=== PATIENT | female | born 1950 | race Caucasian/White ===

== ENCOUNTER 2023-06-23 11:27 | Inpatient (IN) | payer BC, OTHER ==
[~2023-06-23] VITALS: Ht 170.2 cm; Wt 78.5 kg
[~2023-06-23 11:27] MED LIST: CLON1TAB12 PO; HYDR-3919 PO; PRO20 PO; PROP60CA40 PO
[2023-06-23 11:34] VITALS: BP_SYST 118; PULSE 68; RESP 15; TEMP 97.3; O2SAT 98
[2023-06-23 12:41] LABS: BILIRUBIN,URINE 1+ (NEGATIVE); COLOR,URINE YELLOW (YELLOW); GLUCOSE,URINE NEGATIVE (NEGATIVE); KETONES,URINE TRACE (NEGATIVE); LEUKOCYTE ESTERASE ,URINE 2+ (NEGATIVE); NITRITE, URINE NEGATIVE (NEGATIVE); PH,URINE 5.5 (5.0-8.0); PROTEIN URINE TRACE (NEGATIVE)
[2023-06-23 12:45] LABS: BASOPHILS % (AUTO) 0.2 % (0.0-2.0); EOSINOPHILS # (AUTO) 0.1 K/uL (0.0-0.4); EOSINOPHILS % (AUTO) 1.7 % (0.0-4.0); HEMOGLOBIN 12.4 g/dL (12.0-16.0); LYMPHOCYTES # (AUTO) 0.5 K/uL (1.0-5.5); LYMPHOCYTES % (AUTO) 7.1 % (20.5-51.5); MEAN CORPUSCULAR HEMOGLOBIN 30 pg (27-31); MEAN CORPUSCULAR HGB CONC 34 % (32-36); MEAN CORPUSCULAR VOLUME 89 fL (79.0-98.0); MONOCYTES # (AUTO) 0.6 K/uL (0.0-1.0); MONOCYTES % (AUTO) 8.4 % (1.7-9.3); NEUTROPHILS # (AUTO) 5.7 K/uL (1.8-7.7); NEUTROPHILS % (AUTO) 82.6 % (40.0-70.0); PLATELET COUNT (AUTO) 167 K/uL (130-430); RED BLOOD CELL COUNT(AUTO) 4.14 MIL/uL (4.2-6.2); RED CELL DISTRIBUTION WIDTH 13.9 % (9.0-15.0); WHITE BLOOD COUNT (AUTO) 6.9 K/uL (4.8-10.8)
[2023-06-23 12:49] LABS: BLOOD, URINE TRACE (NEGATIVE); CLARITY/URINE HAZY (CLEAR)
[2023-06-23 13:03] LABS: CALCIUM 9.4 mg/dL (8.4-11.0); CREATININE 1.09 mg/dL (0.55-1.30); POTASSIUM 5.2 mmol/L (3.5-5.1)
[2023-06-23 13:07] LABS: ALBUMIN 3.5 g/dL (3.4-4.8); BILIRUBIN,DIRECT 0.2 mg/dL (0.0-0.3); TOTAL BILIRUBIN 0.6 mg/dL (0.0-1.0); TOTAL PROTEIN, SERUM 6.9 g/dL (6.4-8.3)
[2023-06-23 13:09] LABS: BACTERIA,URINE RARE /HPF (None Seen); HYALINE CASTS, URINE 0-2 /LPF (None Seen)
[2023-06-23] MEDS ORDERED: ACETAMINOPHEN 325 MG TABLET PO PRN ×2 (14:15→14:30)
[2023-06-23] MEDS ORDERED: KETOROLAC TROMETHAMINE 15 MG VIAL ONE (15:45)
[2023-06-23] MEDS: MEROPENEM 1 GM in NS 100 ML IV ONE (16:01)
[2023-06-23] MEDS: KETOROLAC TROMETHAMINE 15 MG VIAL IM ONE (16:01)
[2023-06-23] MEDS ORDERED: LOVA40TA75 PO (16:22)
[2023-06-23] MEDS ORDERED: OMEP40CA20 PO (16:22)
[2023-06-24 04:41] LABS: BASOPHILS % (AUTO) 0.3 % (0.0-2.0); EOSINOPHILS # (AUTO) 0.1 K/uL (0.0-0.4); EOSINOPHILS % (AUTO) 2.5 % (0.0-4.0); HEMATOCRIT 31.8 % (36-48); HEMOGLOBIN 10.7 g/dL (12.0-16.0); LYMPHOCYTES # (AUTO) 0.5 K/uL (1.0-5.5); LYMPHOCYTES % (AUTO) 11.2 % (20.5-51.5); MEAN CORPUSCULAR HEMOGLOBIN 30 pg (27-31); MEAN CORPUSCULAR HGB CONC 34 % (32-36); MEAN CORPUSCULAR VOLUME 90 fL (79.0-98.0); MONOCYTES # (AUTO) 0.5 K/uL (0.0-1.0); MONOCYTES % (AUTO) 12.1 % (1.7-9.3); NEUTROPHILS # (AUTO) 3.1 K/uL (1.8-7.7); NEUTROPHILS % (AUTO) 73.9 % (40.0-70.0); PLATELET COUNT (AUTO) 138 K/uL (130-430); RED BLOOD CELL COUNT(AUTO) 3.55 MIL/uL (4.2-6.2); RED CELL DISTRIBUTION WIDTH 13.9 % (9.0-15.0); WHITE BLOOD COUNT (AUTO) 4.2 K/uL (4.8-10.8)
[2023-06-24 05:15] LABS: ALBUMIN 2.9 g/dL (3.4-4.8); CALCIUM 8.8 mg/dL (8.4-11.0); CREATININE 0.86 mg/dL (0.55-1.30); POTASSIUM 4.2 mmol/L (3.5-5.1); TOTAL BILIRUBIN 0.6 mg/dL (0.0-1.0); TOTAL PROTEIN, SERUM 5.8 g/dL (6.4-8.3)
[2023-06-24] MEDS ORDERED: MORPHINE 2 MG/ML INJ. SYRINGE ONE (05:44)
[2023-06-24] MEDS: MORPHINE 2 MG/ML INJ. SYRINGE IVP PRN (05:52)
[2023-06-24] MEDS: ONDANSETRON HCL 4 MG/2 ML VIAL IVP PRN (06:43)
[2023-06-24] MEDS ORDERED: GADOTERATE MEGLUMINE 7.5 MMOL/15 ML VIAL IV ONE (10:07)
[2023-06-24 21:09] VITALS: BP_SYST 132; PULSE 85; RESP 16; TEMP 98.4; O2SAT 95
[2023-06-25 00:05] VITALS: BP_SYST 139; PULSE 77; RESP 18; TEMP 97.9; O2SAT 93
[2023-06-25 06:17] LABS: BASOPHILS % (AUTO) 0.4 % (0.0-2.0); EOSINOPHILS # (AUTO) 0.1 K/uL (0.0-0.4); EOSINOPHILS % (AUTO) 2.2 % (0.0-4.0); HEMATOCRIT 31.8 % (36-48); HEMOGLOBIN 10.7 g/dL (12.0-16.0); LYMPHOCYTES # (AUTO) 0.5 K/uL (1.0-5.5); LYMPHOCYTES % (AUTO) 11.2 % (20.5-51.5); MEAN CORPUSCULAR HEMOGLOBIN 30 pg (27-31); MEAN CORPUSCULAR HGB CONC 34 % (32-36); MEAN CORPUSCULAR VOLUME 89 fL (79.0-98.0); MONOCYTES # (AUTO) 0.4 K/uL (0.0-1.0); MONOCYTES % (AUTO) 10.6 % (1.7-9.3); NEUTROPHILS # (AUTO) 3.1 K/uL (1.8-7.7); NEUTROPHILS % (AUTO) 75.6 % (40.0-70.0); PLATELET COUNT (AUTO) 144 K/uL (130-430); RED BLOOD CELL COUNT(AUTO) 3.56 MIL/uL (4.2-6.2); RED CELL DISTRIBUTION WIDTH 13.9 % (9.0-15.0)
[2023-06-25 06:46] LABS: CALCIUM 8.9 mg/dL (8.4-11.0); CREATININE 0.71 mg/dL (0.55-1.30); POTASSIUM 3.8 mmol/L (3.5-5.1); TOTAL BILIRUBIN 0.7 mg/dL (0.0-1.0)
[2023-06-25 08:05] LABS: PROTHROMBIN TIME 10.8 SECS (9.5-12.5)
[2023-06-25 08:20] VITALS: BP_SYST 124; PULSE 89; RESP 18; TEMP 97.1; O2SAT 95
[2023-06-25] MEDS: HYDROcodone/ACETAMIN 5-325 MG TAB (NORCO/ VICODIN) PO PRN (11:28)
[2023-06-25 12:10] VITALS: BP_SYST 135; PULSE 82; RESP 17; TEMP 98.1; O2SAT 98
[2023-06-25] MEDS: PROPRANOLOL HCL (INDERAL LA 60MG) PO ONE (15:00)
[2023-06-25] MEDS: ATORVASTATIN 10 MG TABLET PO ONE (15:00)
[2023-06-25 16:00] VITALS: BP_SYST 126; PULSE 85; RESP 18; TEMP 97.4; O2SAT 96
[2023-06-25] MEDS: fentaNYL CITRATE/PF 100 MCG/2 ML AMP ONE (16:14)
[2023-06-25] MEDS: ACETAMINOPHEN I.V. 1000 MG 100 ML IV ONE (16:14)
[2023-06-25] MEDS ORDERED: fentaNYL CITRATE/PF 100 MCG/2 ML AMP IVP PRN ×2 (16:30)
[2023-06-25] MEDS: LR 1,000 ML IV ONE (16:30)
[2023-06-25] MEDS ORDERED: NALOXONE HCL 0.4 MG/ML AMP (NARCAN) IVP PRN (16:30)
[2023-06-25] MEDS ORDERED: PROPOFOL 200MG/ 20ML VIAL (DIPRIVAN) IV ONE (16:38)
[2023-06-25] MEDS ORDERED: SEVOFLURANE 15 MIN GAS INH ONE (16:38)
[2023-06-25] MEDS ORDERED: ceFAZolin SODIUM 1 GM VIAL ONE (16:38)
[2023-06-25] MEDS ORDERED: ONDANSETRON HCL 4 MG/2 ML VIAL ONE (16:38)
[2023-06-25] MEDS ORDERED: NEOSTIGMINE METHYLSULFATE 1 MG/ML, 10 ML VIAL ONE (16:38)
[2023-06-25] MEDS ORDERED: LR 1,000 ML IV.SOLN IV ONE (16:38)
[2023-06-25] MEDS ORDERED: ROCURONIUM BROMIDE 10 MG/ML (ZEMURON) ONE (16:38)
[2023-06-25] MEDS ORDERED: DEXAMETHASONE SOD PHOSPHATE 4 MG/ML VIAL ONE (16:38)
[2023-06-25] MEDS ORDERED: MIDAZOLAM HCL/PF 2 MG/2 ML SYRINGE ONE (16:38)
[2023-06-25] MEDS ORDERED: BUPIVACAINE /PF 0.25% 30 ML VIAL INJ ONE (16:38)
[2023-06-25] MEDS ORDERED: SUCCINYLCHOLINE CHLORIDE 20 MG/ML(QUELICIN) ONE (16:38)
[2023-06-25] MEDS ORDERED: GLYCOPYRROLATE 0.2 MG/ML VIAL ONE (16:38)
[2023-06-25] MEDS ORDERED: WATER FOR IRRIGATION,STERILE 1,000 ML IRRIG.SOLN IR ONE (16:38)
[2023-06-25] MEDS: HYDROmorphone 1 MG/ML INJ. CARTRIDGE ONE (18:36)
[2023-06-25] MEDS: HYDROmorphone 1 MG/ML INJ. CARTRIDGE IVP PRN (18:40)
[2023-06-25] MEDS: ONDANSETRON HCL 4 MG/2 ML VIAL ONE (18:45)
[2023-06-25] MEDS: ONDANSETRON HCL 4 MG/2 ML VIAL IVP PRN (18:45)
[2023-06-25] MEDS: KETOROLAC TROMETHAMINE 30 MG VIAL ONE (19:44)
[2023-06-25] MEDS: KETOROLAC TROMETHAMINE 15 MG VIAL IVP PRN (19:45)
[2023-06-25 21:00] VITALS: BP_SYST 140; PULSE 69; RESP 16; TEMP 98.9; O2SAT 96
[2023-06-25] MEDS: HYDROcodone/ACETAMIN 10-325 MG TAB PO PRN (22:34)
[2023-06-26 00:50] VITALS: BP_SYST 94; PULSE 85; RESP 18; TEMP 98.4; O2SAT 97
[2023-06-26 04:48] LABS: BASOPHILS % (AUTO) 0.1 % (0.0-2.0); EOSINOPHILS % (AUTO) 0.1 % (0.0-4.0); HEMATOCRIT 32.8 % (36-48); HEMOGLOBIN 10.9 g/dL (12.0-16.0); LYMPHOCYTES # (AUTO) 0.4 K/uL (1.0-5.5); LYMPHOCYTES % (AUTO) 5.6 % (20.5-51.5); MEAN CORPUSCULAR HEMOGLOBIN 30 pg (27-31); MEAN CORPUSCULAR HGB CONC 33 % (32-36); MEAN CORPUSCULAR VOLUME 90 fL (79.0-98.0); MONOCYTES # (AUTO) 0.3 K/uL (0.0-1.0); NEUTROPHILS % (AUTO) 89.2 % (40.0-70.0); PLATELET COUNT (AUTO) 155 K/uL (130-430); RED BLOOD CELL COUNT(AUTO) 3.65 MIL/uL (4.2-6.2); RED CELL DISTRIBUTION WIDTH 13.9 % (9.0-15.0); WHITE BLOOD COUNT (AUTO) 6.7 K/uL (4.8-10.8)
[2023-06-26 04:50] LABS: CALCIUM 8.2 mg/dL (8.4-11.0); CREATININE 0.88 mg/dL (0.55-1.30); POTASSIUM 4.2 mmol/L (3.5-5.1); TOTAL BILIRUBIN 0.7 mg/dL (0.0-1.0); TOTAL PROTEIN, SERUM 5.9 g/dL (6.4-8.3)
[2023-06-26 08:00] VITALS: BP_SYST 106; PULSE 73; RESP 16; TEMP 97.9; O2SAT 98
[2023-06-26] MEDS: FLUoxetine HCL 20 MG CAPSULE (PROzac) PO SCH (08:56)
[2023-06-26] MEDS: clonazePAM 0.5 MG TABLET PO SCH (08:56)
[2023-06-26] MEDS: ATORVASTATIN 10 MG TABLET PO SCH (08:57)
[2023-06-26] MEDS: PROPRANOLOL HCL (INDERAL LA 60MG) PO SCH (08:58)
[2023-06-26 10:00] VITALS: O2SAT 95
[2023-06-26 12:00] VITALS: BP_SYST 109; PULSE 64; RESP 16; TEMP 98.7; O2SAT 94
[2023-06-26] MEDS ORDERED: PANTOPRAZOLE SODIUM 40 MG TAB PO ONE (12:30)
[2023-06-26] MEDS: CALCIUM CARBONATE 500 MG/ TAB.CHEW PO PRN (13:48)
[2023-06-26] MEDS: PANTOPRAZOLE SODIUM 40 MG/VIAL (PROTONIX) IVP ONE (13:48)
[2023-06-26 16:00] VITALS: BP_SYST 123; PULSE 64; RESP 18; TEMP 98.3; O2SAT 93
[2023-06-26 20:00] VITALS: BP_SYST 111; PULSE 65; RESP 18; TEMP 98.3; O2SAT 95
[2023-06-27] VITALS: BP_SYST 117; PULSE 69; RESP 18; TEMP 98.4; O2SAT 96
[2023-06-27 05:43] LABS: ALBUMIN 2.9 g/dL (3.4-4.8); CALCIUM 8.6 mg/dL (8.4-11.0); CREATININE 0.82 mg/dL (0.55-1.30); TOTAL BILIRUBIN 0.7 mg/dL (0.0-1.0); TOTAL PROTEIN, SERUM 5.3 g/dL (6.4-8.3)
[2023-06-27 07:45] VITALS: BP_SYST 122; PULSE 70; RESP 16; TEMP 97.2; O2SAT 95
[2023-06-27] MEDS ORDERED: PANTOPRAZOLE SODIUM 40 MG TAB PO SCH (09:00)
[2023-06-27 11:21] VITALS: BP_SYST 99; PULSE 70; RESP 16; TEMP 98.7; O2SAT 94
[2023-06-27 11:52] LABS: BASOPHILS % (AUTO) 0.4 % (0.0-2.0); EOSINOPHILS # (AUTO) 0.2 K/uL (0.0-0.4); EOSINOPHILS % (AUTO) 4.4 % (0.0-4.0); HEMATOCRIT 32.8 % (36-48); HEMOGLOBIN 10.9 g/dL (12.0-16.0); LYMPHOCYTES # (AUTO) 0.5 K/uL (1.0-5.5); LYMPHOCYTES % (AUTO) 11.4 % (20.5-51.5); MEAN CORPUSCULAR HEMOGLOBIN 30 pg (27-31); MEAN CORPUSCULAR HGB CONC 33 % (32-36); MEAN CORPUSCULAR VOLUME 90 fL (79.0-98.0); MONOCYTES # (AUTO) 0.5 K/uL (0.0-1.0); MONOCYTES % (AUTO) 11.7 % (1.7-9.3); NEUTROPHILS # (AUTO) 3.3 K/uL (1.8-7.7); NEUTROPHILS % (AUTO) 72.1 % (40.0-70.0); PLATELET COUNT (AUTO) 164 K/uL (130-430); RED BLOOD CELL COUNT(AUTO) 3.63 MIL/uL (4.2-6.2); WHITE BLOOD COUNT (AUTO) 4.5 K/uL (4.8-10.8)
[2023-06-27] MEDS: PANTOPRAZOLE SODIUM 40 MG/VIAL (PROTONIX) IVP SCH (12:16)
[2023-06-27] MEDS ORDERED: HYDR-3919 PO (15:27)
[2023-06-27 15:30] VITALS: BP_SYST 101; PULSE 69; RESP 16; TEMP 97.7; O2SAT 96
[2023-06-27 18:01] VITALS: BP_SYST 101; PULSE 69; RESP 16; TEMP 97.7; O2SAT 96
[2023-07-08] MEDS ORDERED: DEC4 PO (15:42)
== END 2023-06-27 18:45 | disposition home or self-care (01) | DRG 418 ==
LOC: SED 11:27 → SMU 14:14
PROVIDERS: ADMIT Family Medicine; ATTEND Family Medicine
PROC: 0DNU4ZZ Release Omentum, Percutaneous Endoscopic Approach (ICD-10-PCS; 2023-06-25)
PROC: 0FT44ZZ Resection of Gallbladder, Percutaneous Endoscopic Approach (ICD-10-PCS; principal; 2023-06-25 16:38)
DX: K82.8 Other specified diseases of gallbladder (principal); K80.10 Calculus of gallbladder with chronic cholecystitis without obstruction; I10 Essential (primary) hypertension; E78.5 Hyperlipidemia, unspecified; J98.4 Other disorders of lung; N20.0 Calculus of kidney; Z87.891 Personal history of nicotine dependence; Z79.899 Other long term (current) drug therapy; Z88.0 Allergy status to penicillin
CPT/HCPCS: 36415; 71045; 71260; 74181; 76705; 80048; 80053; 80076; 81000; 81001; 81015; 83690; 85025; 85610; 85730; 86886; 86900; 86901; 87040; 87081; 87086; 88304; 93005; 93306; 99285; A9575; C1727; C9113; J0131; J0330; J0690; J1100; J1170; J1885; J2185; J2270; J2405; J2704; J2710; J3010; J3465; J3490; J7120; Q9967

== ENCOUNTER 2023-08-25 09:16 | Inpatient (IN) | payer OTHER ==
[~2023-08-25] VITALS: Ht 170.2 cm; Wt 76.8 kg
[~2023-08-25 09:16] MED LIST changes: +DEC4 PO; +LOVA40TA75 PO; +OMEP40CA20 PO
[2023-08-25 09:25] VITALS: BP_SYST 133; PULSE 59; RESP 18; TEMP 96.6; O2SAT 94
[2023-08-25 10:09] LABS: BASOPHILS % (AUTO) 0.3 % (0.0-2.0); EOSINOPHILS % (AUTO) 0.2 % (0.0-4.0); HEMOGLOBIN 13.1 g/dL (12.0-16.0); LYMPHOCYTES # (AUTO) 0.9 K/uL (1.0-5.5); LYMPHOCYTES % (AUTO) 5.7 % (20.5-51.5); MEAN CORPUSCULAR HEMOGLOBIN 30 pg (27-31); MEAN CORPUSCULAR HGB CONC 34 % (32-36); MEAN CORPUSCULAR VOLUME 89 fL (79.0-98.0); MONOCYTES # (AUTO) 0.8 K/uL (0.0-1.0); MONOCYTES % (AUTO) 5.5 % (1.7-9.3); NEUTROPHILS # (AUTO) 13.6 K/uL (1.8-7.7); NEUTROPHILS % (AUTO) 88.3 % (40.0-70.0); PLATELET COUNT (AUTO) 156 K/uL (130-430); RED BLOOD CELL COUNT(AUTO) 4.37 MIL/uL (4.2-6.2); WHITE BLOOD COUNT (AUTO) 15.4 K/uL (4.8-10.8)
[2023-08-25] MEDS: fentaNYL CITRATE/PF 100 MCG/2 ML AMP IVP ONE (10:11)
[2023-08-25 10:23] LABS: ANION GAP 8 (5-15); CALCIUM 8.8 mg/dL (8.4-11.0); CARBON DIOXIDE 25 mmol/L (23-29); CHLORIDE 101 mmol/L (98-107); CREATININE 1.13 mg/dL (0.55-1.30); GLUCOSE 96 mg/dL (74-106); POTASSIUM 4.4 mmol/L (3.5-5.1); SODIUM SERUM 134 mmol/L (136-145); UREA NITROGEN, BLOOD 26 mg/dL (8-21)
[2023-08-25 10:24] LABS: ALCOHOL, BLOOD < 3 mg/dL (<10); GFR AFRICAN AMERICAN 61 mL/min (>90); GFR NON AFRICAN-AMERICAN 51 mL/min (>90)
[2023-08-25 10:36] LABS: PROTHROMBIN TIME 10.1 SECS (9.5-12.5)
[2023-08-25] MEDS ORDERED: ACETAMINOPHEN 325 MG TABLET PO PRN (11:00)
[2023-08-25] MEDS ORDERED: ALBUTEROL SULFATE 0.083% 2.5 MG/3 ML VIAL.NEB INH PRN (11:00)
[2023-08-25] MEDS ORDERED: hydrALAZINE HCL 20 MG/ML VIAL IVP PRN (11:00)
[2023-08-25 11:45] VITALS: BP_SYST 133; PULSE 58; O2SAT 96
[2023-08-25] MEDS: PROPRANOLOL HCL 10 MG TABLET (INDERAL) PO ONE (12:05)
[2023-08-25 13:50] VITALS: BP_SYST 135; PULSE 66; RESP 16; TEMP 97.8; O2SAT 96
[2023-08-25] MEDS: HYDROcodone/ACETAMIN 10-325 MG TAB PO PRN (14:52)
[2023-08-25 16:44] LABS: ALBUMIN 2.9 g/dL (3.4-4.8); CALCIUM 8.6 mg/dL (8.4-11.0); CREATININE 1.07 mg/dL (0.55-1.30); POTASSIUM 4.1 mmol/L (3.5-5.1); TOTAL BILIRUBIN 0.4 mg/dL (0.0-1.0); TOTAL PROTEIN, SERUM 6.1 g/dL (6.4-8.3)
[2023-08-25 18:20] VITALS: BP_SYST 111; PULSE 62; RESP 17; TEMP 98.5; O2SAT 97
[2023-08-25 19:00] VITALS: O2SAT 97
[2023-08-25 19:25] LABS: BILIRUBIN,URINE NEGATIVE (NEGATIVE); BLOOD, URINE NEGATIVE (NEGATIVE); CLARITY/URINE SL CLOUDY (CLEAR); COLOR,URINE YELLOW (YELLOW); GLUCOSE,URINE NEGATIVE (NEGATIVE); KETONES,URINE NEGATIVE (NEGATIVE); LEUKOCYTE ESTERASE ,URINE 3+ (NEGATIVE); NITRITE, URINE POSITIVE (NEGATIVE); PH,URINE 5.5 (5.0-8.0); PROTEIN URINE NEGATIVE (NEGATIVE); UROBILINOGEN,URINE 0.2 (0.2-1.0)
[2023-08-25 19:39] LABS: BACTERIA,URINE MANY /HPF (None Seen); MUCUS,URINE None Seen /LPF (None Seen); RBC,URINE NONE SEEN /HPF (0-3); WBC,URINE 80-100 /HPF (0-3)
[2023-08-25 19:40] LABS: BARBITURATE, URINE NEGATIVE (NEG <=200); BENZODIAZEPINE, URINE NEGATIVE (NEG <=150); CANNABINOID, URINE NEGATIVE (NEG <=50); COCAINE, URINE NEGATIVE (NEG <=150); METHAMPHETAMINES SCREEN,URINE NEGATIVE (NEG <=500); OPIATE, URINE NEGATIVE (NEG <=100); PHENCYCLIDINE SCREEN,URINE NEGATIVE (NEG <=25); UR TRICYCLIC ANTIDEPRESSANTS NEGATIVE (NEG <=300); URINE AMPHETAMINE NEGATIVE (NEG <=500); URINE METHADONE NEGATIVE (NEG <=200); URINE OXYCODONE SCREEN NEGATIVE (NEG <=100)
[2023-08-25 20:00] VITALS: BP_SYST 128; PULSE 64; RESP 18; TEMP 98
[2023-08-25] MEDS: PROPRANOLOL HCL 10 MG TABLET (INDERAL) PO SCH (21:19)
[2023-08-26] VITALS (7 sets, daily range): BP systolic 99–135; PULSE 55–77; RESP 18–20; TEMP 97–97.9; O2SAT 96–99
[2023-08-26] MEDS: ONDANSETRON HCL 4 MG/2 ML VIAL IVP PRN (03:11)
[2023-08-26 06:45] LABS: BASOPHILS % (AUTO) 0.1 % (0.0-2.0); EOSINOPHILS # (AUTO) 0.1 K/uL (0.0-0.4); EOSINOPHILS % (AUTO) 0.9 % (0.0-4.0); HEMATOCRIT 38.8 % (36-48); HEMOGLOBIN 12.7 g/dL (12.0-16.0); LYMPHOCYTES # (AUTO) 0.9 K/uL (1.0-5.5); LYMPHOCYTES % (AUTO) 5.7 % (20.5-51.5); MEAN CORPUSCULAR HEMOGLOBIN 30 pg (27-31); MEAN CORPUSCULAR HGB CONC 33 % (32-36); MEAN CORPUSCULAR VOLUME 91 fL (79.0-98.0); MONOCYTES # (AUTO) 0.7 K/uL (0.0-1.0); MONOCYTES % (AUTO) 4.4 % (1.7-9.3); NEUTROPHILS # (AUTO) 13.4 K/uL (1.8-7.7); NEUTROPHILS % (AUTO) 88.9 % (40.0-70.0); PLATELET COUNT (AUTO) 156 K/uL (130-430); RED BLOOD CELL COUNT(AUTO) 4.25 MIL/uL (4.2-6.2); RED CELL DISTRIBUTION WIDTH 16.2 % (9.0-15.0); WHITE BLOOD COUNT (AUTO) 15.1 K/uL (4.8-10.8)
[2023-08-26 07:08] LABS: ALBUMIN 2.7 g/dL (3.4-4.8); CALCIUM 8.7 mg/dL (8.4-11.0); CREATININE 0.83 mg/dL (0.55-1.30); TOTAL BILIRUBIN 0.8 mg/dL (0.0-1.0); TOTAL PROTEIN, SERUM 5.8 g/dL (6.4-8.3)
[2023-08-26] MEDS: ATORVASTATIN 10 MG TABLET PO SCH (09:15)
[2023-08-26] MEDS: clonazePAM 0.5 MG TABLET PO SCH (09:15)
[2023-08-26] MEDS: FLUoxetine HCL 20 MG CAPSULE (PROzac) PO SCH (09:15)
[2023-08-26] MEDS: DEXAMETHASONE SOD PHOSPHATE 4 MG/ML VIAL IVP SCH (12:20)
[2023-08-26 12:50] LABS: AMYLASE 49 U/L (0-100); LIPASE 26 U/L (16-77)
[2023-08-26] MEDS: CEFEPIME 1 GM in D5W 50 ML IV SCH (13:47)
[2023-08-26] MEDS: ZOLEDRONIC ACID 4 MG in NS 100 ML IV ONE (17:55)
[2023-08-26] MEDS: CALCIUM CARBONATE/VITAMIN D3 1 TAB TABLET PO SCH (21:29)
[2023-08-27 00:15] VITALS: BP_SYST 118; PULSE 68; RESP 18; TEMP 97; O2SAT 94
[2023-08-27] MEDS: ACETAMINOPHEN 325 MG TABLET PO PRN (04:01)
[2023-08-27 05:55] LABS: BASOPHILS % (AUTO) 0.1 % (0.0-2.0); EOSINOPHILS % (AUTO) 0.2 % (0.0-4.0); HEMATOCRIT 37.7 % (36-48); HEMOGLOBIN 12.5 g/dL (12.0-16.0); LYMPHOCYTES # (AUTO) 0.3 K/uL (1.0-5.5); LYMPHOCYTES % (AUTO) 3.9 % (20.5-51.5); MEAN CORPUSCULAR HEMOGLOBIN 30 pg (27-31); MEAN CORPUSCULAR HGB CONC 33 % (32-36); MEAN CORPUSCULAR VOLUME 91 fL (79.0-98.0); MONOCYTES # (AUTO) 0.4 K/uL (0.0-1.0); MONOCYTES % (AUTO) 4.3 % (1.7-9.3); NEUTROPHILS # (AUTO) 8.2 K/uL (1.8-7.7); NEUTROPHILS % (AUTO) 91.5 % (40.0-70.0); PLATELET COUNT (AUTO) 130 K/uL (130-430); RED BLOOD CELL COUNT(AUTO) 4.17 MIL/uL (4.2-6.2); RED CELL DISTRIBUTION WIDTH 16.3 % (9.0-15.0)
[2023-08-27 06:51] LABS: ALBUMIN 2.7 g/dL (3.4-4.8); CREATININE 0.69 mg/dL (0.55-1.30); POTASSIUM 4.4 mmol/L (3.5-5.1); TOTAL BILIRUBIN 0.6 mg/dL (0.0-1.0)
[2023-08-27 07:36] VITALS: BP_SYST 107; PULSE 73; RESP 18; TEMP 97; O2SAT 98
[2023-08-27 11:11] LABS: HEPATITIS A AB, IgM Negative (Negative); HEPATITIS B CORE AB, IgM Negative (Negative); HEPATITIS B SURFACE AG Negative (Negative); HEPATITIS C VIRUS AB Non Reactive (Non Reactive)
[2023-08-27 11:45] VITALS: BP_SYST 122; PULSE 70; RESP 18; TEMP 98.7; O2SAT 95
[2023-08-27 18:21] VITALS: BP_SYST 118; PULSE 70; RESP 17; TEMP 97.4; O2SAT 95
[2023-08-27 20:00] VITALS: BP_SYST 121; PULSE 77; RESP 20; TEMP 97.1; O2SAT 95
[2023-08-27 20:15] VITALS: O2SAT 97
[2023-08-28] VITALS (8 sets, daily range): BP systolic 109–145; PULSE 62–67; RESP 16–20; TEMP 97.4–98.4; O2SAT 95–98
[2023-08-28 05:40] LABS: BASOPHILS % (AUTO) 0.2 % (0.0-2.0); HEMATOCRIT 39.5 % (36-48); HEMOGLOBIN 12.9 g/dL (12.0-16.0); LYMPHOCYTES # (AUTO) 0.4 K/uL (1.0-5.5); LYMPHOCYTES % (AUTO) 3.1 % (20.5-51.5); MEAN CORPUSCULAR HEMOGLOBIN 30 pg (27-31); MEAN CORPUSCULAR HGB CONC 33 % (32-36); MEAN CORPUSCULAR VOLUME 91 fL (79.0-98.0); MONOCYTES # (AUTO) 0.4 K/uL (0.0-1.0); MONOCYTES % (AUTO) 3.5 % (1.7-9.3); NEUTROPHILS # (AUTO) 11.8 K/uL (1.8-7.7); NEUTROPHILS % (AUTO) 93.2 % (40.0-70.0); PLATELET COUNT (AUTO) 141 K/uL (130-430); RED BLOOD CELL COUNT(AUTO) 4.35 MIL/uL (4.2-6.2); RED CELL DISTRIBUTION WIDTH 16.3 % (9.0-15.0); WHITE BLOOD COUNT (AUTO) 12.7 K/uL (4.8-10.8)
[2023-08-28 06:16] LABS: ALBUMIN 2.8 g/dL (3.4-4.8); CALCIUM 9.7 mg/dL (8.4-11.0); CREATININE 0.81 mg/dL (0.55-1.30); POTASSIUM 4.3 mmol/L (3.5-5.1); TOTAL BILIRUBIN 0.6 mg/dL (0.0-1.0); TOTAL PROTEIN, SERUM 6.4 g/dL (6.4-8.3)
[2023-08-29 00:30] VITALS: BP_SYST 124; PULSE 75; RESP 20; TEMP 97; O2SAT 97
[2023-08-29 05:59] LABS: BASOPHILS % (AUTO) 0.1 % (0.0-2.0); EOSINOPHILS % (AUTO) 0.2 % (0.0-4.0); HEMATOCRIT 38.3 % (36-48); HEMOGLOBIN 12.5 g/dL (12.0-16.0); LYMPHOCYTES # (AUTO) 0.5 K/uL (1.0-5.5); MEAN CORPUSCULAR HEMOGLOBIN 30 pg (27-31); MEAN CORPUSCULAR HGB CONC 33 % (32-36); MEAN CORPUSCULAR VOLUME 91 fL (79.0-98.0); MONOCYTES # (AUTO) 0.8 K/uL (0.0-1.0); MONOCYTES % (AUTO) 5.2 % (1.7-9.3); NEUTROPHILS # (AUTO) 14.2 K/uL (1.8-7.7); NEUTROPHILS % (AUTO) 91.5 % (40.0-70.0); PLATELET COUNT (AUTO) 148 K/uL (130-430); RED CELL DISTRIBUTION WIDTH 16.3 % (9.0-15.0); WHITE BLOOD COUNT (AUTO) 15.5 K/uL (4.8-10.8)
[2023-08-29 06:30] LABS: ALBUMIN 2.6 g/dL (3.4-4.8); CALCIUM 9.2 mg/dL (8.4-11.0); CREATININE 0.77 mg/dL (0.55-1.30); POTASSIUM 4.6 mmol/L (3.5-5.1); TOTAL BILIRUBIN 0.5 mg/dL (0.0-1.0); TOTAL PROTEIN, SERUM 5.9 g/dL (6.4-8.3)
[2023-08-29 07:55] VITALS: BP_SYST 146; PULSE 69; RESP 16; TEMP 97.4; O2SAT 97
[2023-08-29] MEDS ORDERED: DEC4 PO (11:46)
[2023-08-29] MEDS ORDERED: LEVO250T73 PO (11:46)
[2023-08-29 11:47] VITALS: BP_SYST 123; PULSE 85; RESP 18; TEMP 96.7; O2SAT 95
[2023-08-29] MEDS: BISACODYL 10 MG/SUPPOSITORY RC ONE (11:56)
[2023-08-29 13:50] VITALS: O2SAT 95
[2023-08-29 15:15] VITALS: BP_SYST 137; PULSE 85; RESP 18; TEMP 97.6; O2SAT 96
[2023-08-29] MEDS ORDERED: OSCD500 PO (16:21)
[2023-08-29] MEDS ORDERED: MENTHOL/ZINC OXIDE 113 GM OINT. TP PRN (16:45)
[2023-08-29 20:00] VITALS: BP_SYST 134; PULSE 86; RESP 20; TEMP 98.3; O2SAT 95; O2SAT 97
[2023-08-30 01:00] VITALS: BP_SYST 141; PULSE 86; RESP 20; TEMP 97.5; O2SAT 97
[2023-08-30] MEDS: HYDROcodone/ACETAMIN 5-325 MG TAB (NORCO/ VICODIN) PO PRN (06:45)
[2023-08-30 08:38] VITALS: BP_SYST 116; PULSE 62; RESP 16; TEMP 97
[2023-08-30] MEDS: BALSAM PERU/CASTOR OIL 56.7 GM OINT...G. TP SCH (09:56)
[2023-08-30 11:00] VITALS: BP_SYST 144; PULSE 90; RESP 18; TEMP 96.9; O2SAT 98
[2023-08-30 11:26] LABS: BASOPHILS % (AUTO) 0.2 % (0.0-2.0); EOSINOPHILS % (AUTO) 0.2 % (0.0-4.0); HEMATOCRIT 39.7 % (36-48); HEMOGLOBIN 13.1 g/dL (12.0-16.0); LYMPHOCYTES # (AUTO) 0.5 K/uL (1.0-5.5); LYMPHOCYTES % (AUTO) 3.4 % (20.5-51.5); MEAN CORPUSCULAR HEMOGLOBIN 30 pg (27-31); MEAN CORPUSCULAR HGB CONC 33 % (32-36); MEAN CORPUSCULAR VOLUME 91 fL (79.0-98.0); MONOCYTES # (AUTO) 0.8 K/uL (0.0-1.0); MONOCYTES % (AUTO) 5.6 % (1.7-9.3); NEUTROPHILS % (AUTO) 90.6 % (40.0-70.0); PLATELET COUNT (AUTO) 135 K/uL (130-430); RED BLOOD CELL COUNT(AUTO) 4.39 MIL/uL (4.2-6.2); RED CELL DISTRIBUTION WIDTH 16.2 % (9.0-15.0); WHITE BLOOD COUNT (AUTO) 14.3 K/uL (4.8-10.8)
[2023-08-30 11:34] LABS: ALBUMIN 2.7 g/dL (3.4-4.8); CALCIUM 8.9 mg/dL (8.4-11.0); CREATININE 0.71 mg/dL (0.55-1.30); POTASSIUM 4.1 mmol/L (3.5-5.1); TOTAL BILIRUBIN 0.5 mg/dL (0.0-1.0); TOTAL PROTEIN, SERUM 6.2 g/dL (6.4-8.3)
[2023-08-30 16:00] VITALS: BP_SYST 137; PULSE 85; RESP 18; TEMP 97.2; O2SAT 97
[2023-08-30 20:00] VITALS: BP_SYST 129; PULSE 78; RESP 20; TEMP 98.2; O2SAT 96
[2023-08-30] MEDS ORDERED: DEXAMETHASONE SOD PHOSPHATE 4 MG/ML VIAL IVP SCH (22:00)
[2023-08-30] MEDS: DECADRON 4 MG TABLET PO SCH (22:03)
[2023-08-31] VITALS (7 sets, daily range): BP systolic 114–136; PULSE 66–78; RESP 16–20; TEMP 97.1–97.8; O2SAT 95–97
[2023-08-31 06:38] LABS: BASOPHILS % (AUTO) 0.1 % (0.0-2.0); EOSINOPHILS % (AUTO) 0.1 % (0.0-4.0); HEMATOCRIT 37.7 % (36-48); HEMOGLOBIN 12.7 g/dL (12.0-16.0); LYMPHOCYTES # (AUTO) 0.6 K/uL (1.0-5.5); LYMPHOCYTES % (AUTO) 4.9 % (20.5-51.5); MEAN CORPUSCULAR HEMOGLOBIN 30 pg (27-31); MEAN CORPUSCULAR HGB CONC 34 % (32-36); MEAN CORPUSCULAR VOLUME 91 fL (79.0-98.0); MONOCYTES # (AUTO) 0.6 K/uL (0.0-1.0); MONOCYTES % (AUTO) 5.3 % (1.7-9.3); NEUTROPHILS % (AUTO) 89.6 % (40.0-70.0); PLATELET COUNT (AUTO) 130 K/uL (130-430); RED BLOOD CELL COUNT(AUTO) 4.17 MIL/uL (4.2-6.2); RED CELL DISTRIBUTION WIDTH 16.9 % (9.0-15.0); WHITE BLOOD COUNT (AUTO) 12.2 K/uL (4.8-10.8)
[2023-08-31 07:08] LABS: ALBUMIN 2.7 g/dL (3.4-4.8); CALCIUM 9.1 mg/dL (8.4-11.0); CREATININE 0.66 mg/dL (0.55-1.30); POTASSIUM 4.3 mmol/L (3.5-5.1); TOTAL BILIRUBIN 0.4 mg/dL (0.0-1.0)
== END 2023-08-31 15:30 | DRG 543 ==
LOC: SED 09:16 → STU 10:49 → SMU 08-27 22:22
PROVIDERS: ADMIT Family Medicine; ATTEND Family Medicine
DX: C79.51 Secondary malignant neoplasm of bone (principal); C34.91 Malignant neoplasm of unspecified part of right bronchus or lung; C79.31 Secondary malignant neoplasm of brain; E87.1 Hypo-osmolality and hyponatremia; C34.92 Malignant neoplasm of unspecified part of left bronchus or lung; N39.0 Urinary tract infection, site not specified; E78.5 Hyperlipidemia, unspecified; I10 Essential (primary) hypertension; K75.9 Inflammatory liver disease, unspecified; Z88.0 Allergy status to penicillin; Z88.5 Allergy status to narcotic agent; Z88.8 Allergy status to other drugs, medicaments and biological substances; Z79.899 Other long term (current) drug therapy; Z90.49 Acquired absence of other specified parts of digestive tract
CPT/HCPCS: 36415; 70450-TC; 71045; 72125-TC; 72192-TC; 76700; 80048; 80053; 80074; 80307; 81000; 81001; 81015; 82150; 82948; 83690; 85025; 85610; 85730; 87040; 87081; 87086; 87186; 93005; 93971; 94070; 94760; 96374; 97110-GP; 97116-GP; 97530-GP; 99285; G0378; G0482; J0692; J1100; J1956; J2405; J3010; J7060; J8540